=== PATIENT | male | born 1970 | race Caucasian/White ===

== ENCOUNTER 2024-04-03 11:54 | Emergency (ER) | payer OTHER, SELFPAY ==
--- NOTE | ~2024-04-03 | XR_ITS ---
EXAMINATION: XR chest 1V portable DATE: 04/03/2024 12:39 INDICATION: Hypertension. TECHNIQUE: A single frontal view of the chest was obtained on 2 radiographs. COMPARISON: None. FINDINGS: There is no pneumonia, pleural effusion, or pneumothorax. The heart size is normal. IMPRESSION: 1. No acute cardiopulmonary disease. Reviewed, dictated and finalized at location A.
--- NOTE | ~2024-04-03 | CT_ITS ---
EXAMINATION: CTA brain carotid DATE: 04/03/2024 14:01 INDICATION: Right-sided blurry vision. TECHNIQUE: Computed tomographic angiography (CTA) of the head was performed without and with 100 mL O mnipaque-350 intravenous contrast. CTA of the neck was performed with intravenous contrast. Automated exposure control and iterative reconstruction technique were employed. The dose-length product was 1 864.89 mGy-cm. Maximum intensity projection and volume rendered 3D-reconstructions were created by jennifer saavedra technologist on a separate workstation. COMPARISON: None. FINDINGS: HEAD CTA: There is no intracranial hemorrhage, acute infarction, or abnormal intracranial mass lesion . The ventricles are normal in size. The orbits are normal. There is mild mucosal thickening in the p aranasal sinuses. The mastoid air cells are normal. The vertebral arteries are codominant. There is n o significant stenosis of basilar artery or the posterior cerebral arteries. There is no significant stenosis of the intracranial internal carotid arteries or anterior or middle cerebral arteries. Anter ior communicating artery is normal. The posterior communicating arteries are normal. There is no aneu rysm. NECK CTA: There are no pathologically enlarged lymph nodes. There is no significant stenosis of the v ertebral arteries. There is plaque in the proximal internal carotid arteries. There is 0% stenosis of the proximal right internal carotid artery relative to normal distal artery lumen diameter (NASCET c riteria). There is 0% stenosis of the proximal left internal carotid artery relative to normal distal artery lumen diameter. There is moderate cervical spondylosis. IMPRESSION: 1. Normal brain. No aneurysm or significant intracranial arterial stenosis. 2. 0% stenosis of the proximal internal carotid arteries relative to normal distal artery lumen diame ters (NASCET criteria). Reviewed, dictated and finalized at location A. IMPRESSION: 1. Normal brain. No aneurysm or significant intracranial arterial stenosis. 2. 0% stenosis of the proximal internal carotid arteries relative to normal dis fannie artery lumen diameters (NASCET criteria).
[2024-04-03 11:56] VITALS: BP 149/103; PULSE 115; RESP 18; O2SAT 96
[2024-04-03 12:10] VITALS: BP 161/97; PULSE 109; RESP 20; O2SAT 94
--- NOTE | 2024-04-03 12:11 | ED.GENADULT ---
HPI - General Adult General Chief complaint: Unspecified Stated complaint: not feeling well Time Seen by Provider: 04/03/24 12:00 Source: patient History of Present Illness HPI narrative: 53 years old white male drove himself to the emergency room. Patient used to be on lisinopril 20 mg once a day and lisinopril 5 mg once a day, for insurance issue could not afford it, last time had blood pressure medication 2 months ago. Patient got up at 6:00 a.m. felt that his right eye scratchy and slightly blurry. Had some not short T years, went to sleep got up 4 hours later and right eye still have some blurry feeling in it with light pressure. Patient drove himself to the emergency room. He denies any fever, chills, nausea, vomiting, headache, focal neural deficit, chest pain, shortness of breath. History of hypertension, alcohol use. Patient uses driving glasses, last time was seen by saddle stitcher over 2 years ago. His telling me that recently half to keep object away from his eye to to see it well. Related Data Allergies Allergy/AdvReac Type Severity Reaction Status Date / Time No Known Allergies Allergy Verified 04/03/24 12:46 Review of Systems Review of Systems: All systems reviewed & are unremarkable except as noted in HPI and below Exam Narrative: General appearance: Well-developed, well-nourished Skin: Normal color Head: Normocephalic, nontraumatic Eyes: Clear conjunctiva ENT: Oropharynx normal, ears normal, nose normal Neck: Supple, nontender Chest and respiratory: Airway patent, no respiratory distress, no accessory muscle use Heart: Regular rate/rhythm Abdomen: Soft, nontender, no organomegaly, quiet bowel sounds Vascular: Normal peripheral pulses, normal capillary refill. Musculoskeletal: Normal range of motion, nontender back Neurologic: Alert and oriented ?3, PANEL MONITOR is normal as tested, no gross motor deficit Course Vital Signs Vital signs: Vital Signs Pulse Rate 115 H 04/03/24 11:56 Respiratory Rate 18 04/03/24 11:56 Blood Pressure 149/103 H 04/03/24 11:56 Pulse Oximetry 96 04/03/24 11:56 Oxygen Delivery Room Air 04/03/24 11:56 Pulse Rate 103 H 04/03/24 14:00 Respiratory Rate 18 04/03/24 14:00 Blood Pressure 177/109 H 04/03/24 14:00 Pulse Oximetry 95 04/03/24 14:00 Oxygen Delivery Room Air 04/03/24 11:56 Medical Decision Making MDM Narrative Medical decision making narrative: Patient came to the ED with blurry vision right eye noticed after waking up from sleep this morning. Patient did not take his blood pressure medication for the last 2 months Vital signs on arrival showed blood pressure 149/103 Physical examination is unremarkable Differential diagnosis include CVA, hypertension related symptoms, stress/anxiety symptoms, electrolyte imbalance, dehydration, infection. Blood workup today showed total bilirubin 2.1, AST 86, ALT 73. Patient is alcohol user. Urinalysis showed evidence of urinary tract infection Chest x-ray showed no acute abnormalities CTA head and neck showed no acute abnormalities Visual acuity 20/20 bilaterally Patient blurry vision and pressure of the right eye are resolved few minutes after arrival to the ED. Discharged on lisinopril, amlodipine and Cipro. The pt was discharged to home.the pt,s condition upon discharge was fair,education was provided to the pt in reference to the final impression,discharge study results,treatment,prognosis and need for follow up . Differential Diagnosis Differential Diagnosis: Differential diagnosis include hypertension, CVA, age-related vision change, Vital Signs Vital Signs: Vital Signs Pulse Rate 115 H 04/03/24
--- NOTE | 2024-04-03 12:13 | ECG_ITS ---
Test Date: 2024-04-03 12:54:56 Measurements Intervals [place] Rate: 108 P: 35 [place]: 130 QRS: 31 QRSD: 94 T: 28 QT: 329 QTc: 442 Interpretive Statements SINUS TACHYCARDIA BORDERLINE T WAVE ABNORMALITY- INF/HIGH LAT LEADS BASELINE ARTIFACT- I, II, III, AVR, AVL, AVF, V1-V2 ABNORMAL ECG No previous ECG available for comparison Electronically Signed On 04-03-2024 12:57:28 CDT by Airs Rayo D.O.
[2024-04-03 12:46] LABS: Eosinophils Absolute Auto 0.1 K/mm3 (0-0.3); Eosinophils Percent Auto 1.7 % (0-4.4); Hematocrit 47.1 % (42.0-52.0); Hemoglobin 17.4 g/dL (14.0-18.0); Immature Granulocyte Absolute 0.02 K/mm3 (0.00-0.031); Immature Granulocyte Percent A 0.5 % (0-0.5); Lymphocytes Absolute Auto 1.15 K/mm3 (0.9-3.2); Mean Corpuscular HGB Conc 36.9 g/dl (32-36); Mean Corpuscular Hemoglobin 34.5 pg (26-34); Mean Corpuscular Volume 93.5 fl (80-100); Mean Platelet Volume 9.7 fl (7.4-10.4); Monocytes Absolute Auto 0.4 K/mm3 (0.1-0.6); Monocytes Percent Auto 9.2 % (2.6-8.5); Neutrophils Absolute Auto 2.5 K/mm3 (1.3-6.7); Neutrophils Percent Auto 59.6 % (45.5-73.1); Platelet Count Result 134 k/mm3 (150-375); Red Blood Count 5.04 M/mm3 (4.6-6.20); Red Cell Distribution Width 12.9 % (11.5-14.5); White Blood Count 4.1 K/mm3 (4.5-10.0)
[2024-04-03] MEDS: lisinopriL 20 MG TABLET PO (12:51)
[2024-04-03] MEDS: amLODIPine BESYLATE 5 MG TABLET PO (12:52)
[2024-04-03 12:58] LABS: Alanine Aminotransferase 73 U/L (6-50); Alkaline Phosphatase 49 U/L (38-126); Anion Gap 16 mmol/L (4-12); Aspartate Amino Transferase 86 U/L (17-59); Bilirubin,Total 2.1 mg/dL (0.2-1.3); Blood Urea Nitrogen 13 mg/dL (9-20); Calcium 9.3 mg/dL (8.4-10.2); Carbon Dioxide 24 mmol/L (22-30); Chloride 95 mmol/L (98-107); Estimated CRCL calculation 108 ml/min; Estimated Glomerular Filt Rate > 60; Glucose 176 mg/dL (65-110); Potassium 3.6 mmol/L (3.4-5.0); Sodium 135 mmol/L (137-145)
[2024-04-03 13:00] VITALS: BP 159/114; PULSE 108; RESP 20; O2SAT 95
[2024-04-03 13:00] LABS: Appearance Urine Clear (Clear); Color Urine Dark Yellow (Yellow); Glucose Urine UA Negative (Negative); Ketones Urine 1+ mg/dL (Negative); Protein Urine 2+ mg/dL (Negative); Specific Grav Ur > 1.030 (1.001-1.035); pH Urine 5.5 (5.0-9.0)
[2024-04-03 13:01] LABS: Add Urine Microscopic? YES; Bilirubin Urine 2+ (Negative); Blood Urine Negative (Negative); Leukocyte Esterase Ur Negative LEU/UL (Negative); Nitrate Urine Positive (Negative)
[2024-04-03 13:14] LABS: RBC Urine None seen /hpf (0-2); Squamous Epithelial Cell Urine Rare /hpf (Few); WBC Urine 0-5 /hpf (0-3)
[2024-04-03 13:15] LABS: Amorphous Sediment Urine Heavy; Bacteria Urine 4+ /hpf
[2024-04-03 14:00] VITALS: BP 177/109; PULSE 103; RESP 18; O2SAT 95
[2024-04-03 15:00] VITALS: BP 160/99; PULSE 103; RESP 20; O2SAT 99
== END 2024-04-03 13:10 | disposition home or self-care (01) ==
PROVIDERS: Emergency Provider Emergency Medicine
DX: N39.0 Urinary tract infection, site not specified (principal); I10 Essential (primary) hypertension; Z91.148 Patient's other noncompliance with medication regimen for other reason
CPT/HCPCS: 36415; 70496; 70498; 71045; 80053; 81001; 85025; 87077; 87086; 87088; 93005; 99284; A9270; Q9967